=== PATIENT | female | born 2000 | race Two or more races ===

== ENCOUNTER 2021-04-22 05:47 | Emergency (ER) | payer MEDICAID ==
[~2021-04-22] VITALS: Ht 154.9 cm; Wt 72.7 kg
[~2021-04-22 05:47] MED LIST: ALBU8.5H4 IH; AMOX500T2 PO; NITR100C6 PO; ONDA4TAB12 PO; ONDA8TAB9 PO; SERT-434 PO
[2021-04-22] MEDS ORDERED: azithromycin 250mg tablet PO ONE (07:10)
[2021-04-22] MEDS ORDERED: diphenhydrAMINE 25 MG/10 ML UD oral solution PO ONE (07:10)
[2021-04-22] MEDS ORDERED: naproxen 500mg tablet PO ONE (07:10)
[2021-04-22] MEDS ORDERED: AZIT250T PO (07:12)
[2021-04-22] MEDS ORDERED: DIPH25CA83 PO (07:12)
[2021-04-22 07:22] VITALS: BP 119/84
== END 2021-04-22 07:34 | disposition home or self-care (01) ==
LOC: ER 05:48
DX: H66.92 Otitis media, unspecified, left ear (principal); H92.02 Otalgia, left ear; R09.81 Nasal congestion; J45.909 Unspecified asthma, uncomplicated; F41.9 Anxiety disorder, unspecified; Z87.440 Personal history of urinary (tract) infections; Z90.89 Acquired absence of other organs; Z98.890 Other specified postprocedural states; Z79.2 Long term (current) use of antibiotics; Z79.899 Other long term (current) drug therapy
CPT/HCPCS: 99284; Q0163

== ENCOUNTER 2021-09-29 09:39 | Emergency (ER) | payer MEDICAID ==
[~2021-09-29] VITALS: Ht 154.9 cm; Wt 75.0 kg
[~2021-09-29 09:39] MED LIST changes: +DIPH25CA83 PO
[2021-09-29 09:44] VITALS: BP 112/69
[2021-09-29] MEDS ORDERED: AMOX875T2 PO (10:55)
== END 2021-09-29 11:46 | disposition home or self-care (01) ==
LOC: ER 09:39
DX: H66.93 Otitis media, unspecified, bilateral (principal); J45.909 Unspecified asthma, uncomplicated; Z87.440 Personal history of urinary (tract) infections; Z90.49 Acquired absence of other specified parts of digestive tract; Z79.2 Long term (current) use of antibiotics; Z79.899 Other long term (current) drug therapy
CPT/HCPCS: 99283

== ENCOUNTER 2023-03-22 07:03 | Emergency (ER) | payer MEDICAID ==
[~2023-03-22] VITALS: Ht 154.9 cm; Wt 69.2 kg
[2023-03-22 08:13] LABS: BASOPHILS % (AUTO) 0.1 % (0-1); EOSINOPHILS % (AUTO) 0.2 % (0-6); HEMATOCRIT 37.8 % (35.0-45.0); HEMOGLOBIN 12.5 g/dl (12.0-16.0); LYMPHOCYTES # (AUTO) 1.2 X10'3 (1.1-4.8); LYMPHOCYTES % (AUTO) 7.5 % (21-51); MEAN CORPUSCULAR HEMOGLOBIN 27.9 PG (27.0-31.0); MEAN CORPUSCULAR HGB CONC 33.1 g/dL (33.0-36.5); MEAN CORPUSCULAR VOLUME 84.4 FL (78-98); MEAN PLATELET VOLUME 8.4 FL (7.4-10.4); NEUTROPHILS # (AUTO) 14.1 X10'3 (1.8-7.7); NEUTROPHILS % (AUTO) 86.2 % (42-75); PLATELET COUNT 205 X10'3 (140-440); RED BLOOD COUNT 4.48 X10'6 (4.20-5.60); RED CELL DISTRIBUTION WIDTH 14.5 % (11.5-14.5); WHITE BLOOD COUNT 16.4 X10'3 (4.5-11.0)
[2023-03-22 08:17] LABS: URINE HCG POSITIVE (NEG)
[2023-03-22 08:21] LABS: CLARITY,URINE SLIGHTLY CLOUDY (Clear); COLOR,URINE YELLOW (Yellow); GLUCOSE, URINE NEGATIVE (Neg); KETONES,URINE >=80 mg/dl (Neg); LEUKOCYTE ESTERASE ,URINE NEGATIVE (Neg); NITRITES, URINE NEGATIVE (Neg); OCCULT BLOOD,URINE LARGE (Neg); PH,URINE 6.5 (4.8-8.0); PROTEIN,URINE 100 mg/dl (Neg)
[2023-03-22 08:25] LABS: UA COLLECTION TYPE CLN CATCH MIDSTREAM
[2023-03-22 08:28] LABS: BACTERIA,URINE 1+ /HPF (Neg); MUCUS STRANDS NONE SEEN /LPF (Neg); RBC,URINE TNTC /HPF (0-2); SQUAMOUS EPITHELIAL CELL,UR MODERATE /LPF (FEW)
[2023-03-22 08:30] LABS: ALANINE AMINOTRANSFERASE 16 U/L (12-78); ALBUMIN 3.4 G/DL (3.4-5.0); ALBUMIN/GLOBULIN RATIO 0.9 (1.1-1.5); ALKALINE PHOSPHATASE 81 IU/L (46-116); ANION GAP 13 (8-16); ASPARTATE AMINO TRANSFERASE 19 U/L (10-37); BILIRUBIN,TOTAL 0.5 MG/DL (0.1-1.0); BLOOD UREA NITROGEN 5 MG/DL (7-18); BUN/CREATININE RATIO 9.3 (10.0-20.0); CALCIUM 9.2 MG/DL (8.5-10.1); CHLORIDE 100 MMOL/L (99-107); CREATININE 0.54 MG/DL (0.40-0.90); GLUCOSE 89 MG/DL (70-104); LIPASE < 50 U/L (73-393); POTASSIUM 3.1 MMOL/L (3.5-5.1); SODIUM 135 MMOL/L (135-145); TOTAL CARBON DIOXIDE 22.5 MMOL/L (24-32); TOTAL PROTEIN 7.1 G/DL (6.4-8.2); eGFR > 90 ML/MIN
[2023-03-22] MEDS ORDERED: ondansetron 4mg rapidly disintigrating tab PO ONE (08:55)
[2023-03-22] MEDS ORDERED: acetaminophen 325mg tablet PO ONE (08:55)
[2023-03-22 10:00] VITALS: BP 106/60
[2023-03-22] MEDS ORDERED: HYDROcodone/acetaminophen 5mg/325mg tablet PO ONE (10:45)
[2023-03-22] MEDS ORDERED: metoclopramide 10mg tablet PO ONE (10:45)
== END 2023-03-22 12:32 | disposition left against medical advice (07) ==
LOC: ER 07:46
DX: O20.0 Threatened abortion (principal); Z3A.01 Less than 8 weeks gestation of pregnancy; J45.909 Unspecified asthma, uncomplicated
CPT/HCPCS: 36415; 76801; 80053; 81001; 81025; 83690; 84145; 84702; 85025; 86885; 86900; 86901; 87088; 99284

== ENCOUNTER 2023-07-20 07:18 | Emergency (ER) | payer MEDICAID ==
[~2023-07-20] VITALS: Ht 165.1 cm; Wt 57.2 kg
[2023-07-20 07:56] LABS: URINE HCG NEGATIVE (NEG)
[2023-07-20 08:13] LABS: BASOPHILS % (AUTO) 0.5 % (0-1); EOSINOPHILS # (AUTO) 0.3 X10'3 (0-0.9); EOSINOPHILS % (AUTO) 3.9 % (0-6); HEMATOCRIT 39.3 % (35.0-45.0); HEMOGLOBIN 13.1 g/dl (12.0-16.0); LYMPHOCYTES % (AUTO) 26.5 % (21-51); MEAN CORPUSCULAR HEMOGLOBIN 27.5 PG (27.0-31.0); MEAN CORPUSCULAR HGB CONC 33.3 g/dL (33.0-36.5); MEAN CORPUSCULAR VOLUME 82.6 FL (78-98); MEAN PLATELET VOLUME 8.2 FL (7.4-10.4); MONOCYTES # (AUTO) 0.5 X10'3 (0-0.9); MONOCYTES % (AUTO) 6.6 % (2-12); NEUTROPHILS # (AUTO) 4.8 X10'3 (1.8-7.7); NEUTROPHILS % (AUTO) 62.5 % (42-75); PLATELET COUNT 221 X10'3 (140-440); RED BLOOD COUNT 4.77 X10'6 (4.20-5.60); RED CELL DISTRIBUTION WIDTH 14.6 % (11.5-14.5); WHITE BLOOD COUNT 7.6 X10'3 (4.5-11.0)
[2023-07-20 08:19] LABS: ALANINE AMINOTRANSFERASE 14 U/L (12-78); ALBUMIN 3.9 G/DL (3.4-5.0); ALBUMIN/GLOBULIN RATIO 1.1 (1.1-1.5); ALKALINE PHOSPHATASE 63 IU/L (46-116); ANION GAP 13 (8-16); ASPARTATE AMINO TRANSFERASE 13 U/L (10-37); BILIRUBIN,TOTAL 0.8 MG/DL (0.1-1.0); BLOOD UREA NITROGEN 10 MG/DL (7-18); BUN/CREATININE RATIO 14.1 (10.0-20.0); CALCIUM 9.5 MG/DL (8.5-10.1); CHLORIDE 104 MMOL/L (99-107); CREATININE 0.71 MG/DL (0.40-0.90); GLUCOSE 111 MG/DL (70-104); POTASSIUM 3.4 MMOL/L (3.5-5.1); SODIUM 138 MMOL/L (135-145); TOTAL CARBON DIOXIDE 20.8 MMOL/L (24-32); TOTAL PROTEIN 7.5 G/DL (6.4-8.2); eCRCL 94 ML/MIN; eGFR > 90 ML/MIN
[2023-07-20 08:21] LABS: SALICYLATE 2.6 MG/DL (4.0-20.0)
[2023-07-20 08:25] LABS: URINE AMPHETAMINE SCREEN NEGATIVE (Neg); URINE BARBITUATE SCREEN NEGATIVE (Neg); URINE BENZODIAZEPINES SCREEN POSITIVE (Neg); URINE CANNABINOID SCREEN POSITIVE (Neg); URINE COCAINE SCREEN POSITIVE (Neg); URINE METHADONE SCREEN NEGATIVE (Neg); URINE OPIATE SCREEN NEGATIVE (Neg); URINE PHENCYCLIDINE SCREEN NEGATIVE (Neg)
[2023-07-20 08:27] LABS: ACETAMINOPHEN < 2.0 UG/ML (10-30)
[2023-07-20 11:38] LABS: ETHANOL < 10 MG/DL (<10)
--- NOTE | 2023-07-20 11:54 | NUR ---
Faxed Packet to [facility].
[2023-07-20] MEDS ORDERED: NO HOME MEDS (11:58)
--- NOTE | 2023-07-20 12:17 | NUR ---
Patient eating lunch. No distress observed. Continue to monitor.
--- NOTE | 2023-07-20 12:50 | NUR ---
Percy ZAMORANO, evaluating patient. No distress observed. Continue to monitor.
--- NOTE | 2023-07-20 13:46 | NUR ---
[id number] placed on patient by [facility].
--- NOTE | 2023-07-20 13:46 | NUR ---
Patient sleeping on her right side. Nonlabored respirations. No distress observed. Continue with patient's plan of care.
--- NOTE | 2023-07-20 15:33 | NUR ---
Patient sleeping. No distress observed. Continue to monitor.
--- NOTE | 2023-07-20 17:19 | NUR ---
Patient eating dinner. No distress observed. Continue to monitor.
[2023-07-20 18:00] VITALS: BP 106/74; PULSE 100; RESP 16; TEMP 98; O2SAT 96
--- NOTE | 2023-07-20 19:40 | NUR ---
Patient sleeping on her right side. No distress observed. Continue to monitor.
--- NOTE | 2023-07-20 21:33 | NUR ---
Patient sleeping supine. Nonlabored respirations. RN awoke patient to get dressed as patient should be leaving soon. No distress observed.
== END 2023-07-20 21:53 | disposition still patient (30) ==
LOC: ER 07:19
DX: R45.851 Suicidal ideations (principal); Z20.822 Contact with and (suspected) exposure to COVID-19; F19.10 Other psychoactive substance abuse, uncomplicated; F32.A Depression, unspecified
CPT/HCPCS: 36415; 80053; 80305; 80320; 80329; 81025; 84443; 85025; 87811; 99285

== ENCOUNTER 2024-07-23 09:11 | Inpatient (IN) | payer MEDICAID ==
[~2024-07-23] VITALS: Ht 154.9 cm; Wt 85.0 kg
[~2024-07-23 09:11] MED LIST changes: -ALBU8.5H4 IH; -AMOX500T2 PO; -DIPH25CA83 PO; -NITR100C6 PO; +NO HOME MEDS; -ONDA4TAB12 PO; -ONDA8TAB9 PO; -SERT-434 PO
[2024-07-23 11:18] VITALS: BP 100/71; PULSE 106; RESP 18; TEMP 98.2; O2SAT 100
[2024-07-23] MEDS ORDERED: magnesium hydroxide 30ml (MOM) UD suspension PO PRN (12:00)
[2024-07-23] MEDS ORDERED: acetaminophen 325mg tablet PO PRN ×2 (12:00)
[2024-07-23] MEDS ORDERED: loperamide 2mg capsule PO PRN (12:00)
[2024-07-23] MEDS ORDERED: mag hydrox/Alum hydrox/simeth 30ml oral suspension PO PRN (12:00)
[2024-07-23] MEDS ORDERED: LAMO25TA5 PO (13:45)
[2024-07-23] MEDS ORDERED: LURA40TA4 PO (13:45)
[2024-07-23 19:00] VITALS: BP 126/84; PULSE 96; RESP 16; TEMP 98.2; O2SAT 100; O2SAT 96
[2024-07-23] MEDS: lamoTRIgine 25mg tablet PO SCH (21:11)
[2024-07-23] MEDS: lurasidone 20mg tablet PO SCH (21:12)
[2024-07-23] MEDS ORDERED: OLANZAPINE 5 MG TABLET PO SCH ×2 (21:55→22:07)
[2024-07-23] MEDS: OLANZapine 2.5MG tablet PO ONE (22:25)
[2024-07-23] MEDS: FLUoxetine 20mg capsule PO ONE (22:25)
[2024-07-23] MEDS: OLANZAPINE 5 MG TABLET PO ONE (22:48)
[2024-07-24 07:30] VITALS: BP 114/59; PULSE 77; RESP 14; TEMP 97.8; O2SAT 99
[2024-07-24] MEDS ORDERED: OLANZAPINE 5 MG TABLET PO SCH ×2 (08:00)
[2024-07-24 08:05] LABS: BASOPHILS % (AUTO) 0.3 % (0-1); EOSINOPHILS # (AUTO) 0.2 X10'3 (0-0.9); EOSINOPHILS % (AUTO) 2.2 % (0-6); HEMOGLOBIN 13.6 g/dl (12.0-16.0); LYMPHOCYTES # (AUTO) 2.7 X10'3 (1.1-4.8); LYMPHOCYTES % (AUTO) 33.1 % (21-51); MEAN CORPUSCULAR HEMOGLOBIN 29.9 PG (27.0-31.0); MEAN CORPUSCULAR HGB CONC 33.1 g/dL (33.0-36.5); MEAN CORPUSCULAR VOLUME 90.3 FL (78-98); MEAN PLATELET VOLUME 7.9 FL (7.4-10.4); MONOCYTES # (AUTO) 0.6 X10'3 (0-0.9); NEUTROPHILS # (AUTO) 4.7 X10'3 (1.8-7.7); NEUTROPHILS % (AUTO) 57.4 % (42-75); PLATELET COUNT 235 X10'3 (140-440); RED BLOOD COUNT 4.54 X10'6 (4.20-5.60); RED CELL DISTRIBUTION WIDTH 12.9 % (11.5-14.5); WHITE BLOOD COUNT 8.1 X10'3 (4.5-11.0)
[2024-07-24 08:40] LABS: ALANINE AMINOTRANSFERASE 21 U/L (12-78); ALBUMIN 3.4 G/DL (3.4-5.0); ALBUMIN/GLOBULIN RATIO 1.1 (1.1-1.5); ALKALINE PHOSPHATASE 65 IU/L (46-116); ANION GAP 10 (8-16); ASPARTATE AMINO TRANSFERASE 14 U/L (10-37); BILIRUBIN,TOTAL 0.4 MG/DL (0.1-1.0); BLOOD UREA NITROGEN 7 MG/DL (7-18); BUN/CREATININE RATIO 11.3 (10.0-20.0); CHLORIDE 105 MMOL/L (99-107); CHOLESTEROL 162 MG/DL (0-200); CREATININE 0.62 MG/DL (0.40-0.90); GLUCOSE 88 MG/DL (70-104); HDL CHOLESTEROL 54 MG/DL (35-60); LDL CHOLESTEROL 85 MG/DL (50-100); SODIUM 140 MMOL/L (135-145); THYROID STIMULATING HORMONE 0.98 ulU/ml (0.34-4.50); TOTAL PROTEIN 6.6 G/DL (6.4-8.2); TRIGLYCERIDES 94 MG/DL (20-135); eCRCL 106 ML/MIN; eGFR > 90 ML/MIN
[2024-07-24 08:44] LABS: HEMOGLOBIN A1C 4.6 % (4.5-6.2)
[2024-07-24 19:00] VITALS: BP 113/72; PULSE 90; RESP 14; TEMP 99.3; O2SAT 100
[2024-07-24] MEDS ORDERED: FLUoxetine 20mg capsule PO SCH (20:00)
[2024-07-24] MEDS: FLUoxetine 20mg capsule PO SCH (20:59)
[2024-07-24] MEDS: OLANZAPINE 5 MG TABLET PO SCH (21:00)
[2024-07-25 07:10] VITALS: RESP 18; O2SAT 96
[2024-07-25 08:00] VITALS: BP 116/74; PULSE 96; RESP 14; TEMP 97.2; O2SAT 100
[2024-07-25] MEDS: hydrOXYzine 25 MG tablet PO PRN (18:24)
[2024-07-25 19:00] VITALS: RESP 18; O2SAT 99
[2024-07-25 20:00] VITALS: BP 126/89; PULSE 89; RESP 16; TEMP 98.7; O2SAT 100
[2024-07-25] MEDS ORDERED: OLAN5TAB75 PO (21:00)
[2024-07-25] MEDS ORDERED: HYDR-3686 PO (21:00)
[2024-07-25] MEDS ORDERED: FLUO-167 PO (21:00)
== END 2024-07-25 21:33 | disposition home or self-care (01) | DRG 753 ==
LOC: ADULT MH 11:32
PROVIDERS: ADMIT Psychiatry & Neurology Psychiatry; ATTEND Psychiatry & Neurology Psychiatry
DX: F31.63 Bipolar disorder, current episode mixed, severe, without psychotic features (principal); F19.10 Other psychoactive substance abuse, uncomplicated; F41.3 Other mixed anxiety disorders; G47.00 Insomnia, unspecified; Z83.3 Family history of diabetes mellitus; T50.991A Poisoning by other drugs, medicaments and biological substances, accidental (unintentional), initial encounter; Y92.9 Unspecified place or not applicable
CPT/HCPCS: 36415; 80053; 80061; 83036; 84443; 85025; 87081; Q0177

== ENCOUNTER 2024-09-30 11:43 | Emergency (ER) | payer MEDICAID ==
[~2024-09-30] VITALS: Ht 154.9 cm; Wt 81.8 kg
[~2024-09-30 11:43] MED LIST changes: +FLUO-167 PO; +HYDR-3686 PO; +OLAN5TAB75 PO
[2024-09-30] MEDS: oxyCODONE/APAP 10/325mg tablet PO ONE (13:02)
[2024-09-30 13:08] LABS: BASOPHILS % (AUTO) 0.3 % (0-1); EOSINOPHILS # (AUTO) 0.2 X10'3 (0-0.9); EOSINOPHILS % (AUTO) 1.9 % (0-6); HEMATOCRIT 35.2 % (35.0-45.0); HEMOGLOBIN 12.1 g/dl (12.0-16.0); LYMPHOCYTES # (AUTO) 1.6 X10'3 (1.1-4.8); LYMPHOCYTES % (AUTO) 19.4 % (21-51); MEAN CORPUSCULAR HEMOGLOBIN 30.2 PG (27.0-31.0); MEAN CORPUSCULAR HGB CONC 34.3 g/dL (33.0-36.5); MEAN CORPUSCULAR VOLUME 88.1 FL (78-98); MEAN PLATELET VOLUME 7.8 FL (7.4-10.4); MONOCYTES # (AUTO) 0.6 X10'3 (0-0.9); MONOCYTES % (AUTO) 7.8 % (2-12); NEUTROPHILS # (AUTO) 5.7 X10'3 (1.8-7.7); NEUTROPHILS % (AUTO) 70.6 % (42-75); PLATELET COUNT 231 X10'3 (140-440); WHITE BLOOD COUNT 8.1 X10'3 (4.5-11.0)
[2024-09-30 13:21] LABS: ALANINE AMINOTRANSFERASE 17 U/L (12-78); ALBUMIN 3.1 G/DL (3.4-5.0); ALBUMIN/GLOBULIN RATIO 0.8 (1.1-1.5); ALKALINE PHOSPHATASE 69 IU/L (46-116); ANION GAP 9 (8-16); ASPARTATE AMINO TRANSFERASE 22 U/L (10-37); BILIRUBIN,TOTAL 0.5 MG/DL (0.1-1.0); BLOOD UREA NITROGEN 7 MG/DL (7-18); BUN/CREATININE RATIO 14.9 (10.0-20.0); CALCIUM 8.8 MG/DL (8.5-10.1); CHLORIDE 107 MMOL/L (99-107); CREATININE 0.47 MG/DL (0.40-0.90); GLUCOSE 97 MG/DL (70-104); POTASSIUM 4.1 MMOL/L (3.5-5.1); SODIUM 140 MMOL/L (135-145); TOTAL CARBON DIOXIDE 24.2 MMOL/L (24-32); TOTAL PROTEIN 6.9 G/DL (6.4-8.2); eCRCL 140 ML/MIN; eGFR > 90 ML/MIN
[2024-09-30 15:33] VITALS: BP 127/82; PULSE 99; RESP 16; TEMP 98.6; O2SAT 99
== END 2024-09-30 15:35 | disposition home or self-care (01) ==
LOC: ER 11:43 → EEVIPCON 11:43 → ER 15:35
DX: G62.9 Polyneuropathy, unspecified (principal); M79.605 Pain in left leg; J45.909 Unspecified asthma, uncomplicated; Z90.49 Acquired absence of other specified parts of digestive tract; F41.9 Anxiety disorder, unspecified; Z79.899 Other long term (current) drug therapy
CPT/HCPCS: 36415; 80053; 85025; 99284

== ENCOUNTER 2024-10-04 00:44 | Emergency (ER) | payer MEDICAID ==
[~2024-10-04] VITALS: Ht 154.9 cm; Wt 84.1 kg
[2024-10-04 01:01] VITALS: TEMP 98.5
[2024-10-04] MEDS: HYDROmorphone 1 mg/ml syringe IM ONE (02:51)
[2024-10-04] MEDS ORDERED: OXYC-658 PO (02:57)
[2024-10-04 03:22] VITALS: BP 121/84; PULSE 85; RESP 16; O2SAT 98
== END 2024-10-04 03:22 | disposition home or self-care (01) ==
LOC: ER 00:45
DX: S89.102A Unspecified physeal fracture of lower end of left tibia, initial encounter for closed fracture (principal); S89.302A Unspecified physeal fracture of lower end of left fibula, initial encounter for closed fracture; J45.909 Unspecified asthma, uncomplicated; Z79.899 Other long term (current) drug therapy; Z87.440 Personal history of urinary (tract) infections; Z90.49 Acquired absence of other specified parts of digestive tract; V89.2XXA Person injured in unspecified motor-vehicle accident, traffic, initial encounter; Y93.89 Activity, other specified; Y92.89 Other specified places as the place of occurrence of the external cause; Y99.8 Other external cause status
CPT/HCPCS: 73590; 96372; 99284; J1171

== ENCOUNTER 2025-06-22 23:03 | Emergency (ER) | payer MEDICAID ==
[~2025-06-22] VITALS: Ht 154.9 cm; Wt 85.0 kg
[2025-06-22 23:20] VITALS: BP 112/64; PULSE 90; RESP 15; TEMP 97.6; O2SAT 99
[2025-06-22 23:47] LABS: URINE HCG NEGATIVE (NEG)
[2025-06-22 23:51] LABS: LEUKOCYTE ESTERASE ,URINE NEGATIVE (Neg); NITRITES, URINE NEGATIVE (Neg); OCCULT BLOOD,URINE NEGATIVE (Neg)
[2025-06-22 23:52] LABS: UA COLLECTION TYPE CLN CATCH MIDSTREAM
[2025-06-23 00:12] LABS: MEAN PLATELET VOLUME 8.2 FL (7.4-10.4); RED CELL DISTRIBUTION WIDTH 13.5 % (11.5-14.5)
[2025-06-23 00:20] LABS: CREATININE 0.77 MG/DL (0.40-0.90); TOTAL CARBON DIOXIDE 28.8 MMOL/L (24-32); eCRCL 85 ML/MIN; eGFR > 90 ML/MIN
== END 2025-06-23 01:20 | disposition left against medical advice (07) ==
LOC: ER 23:04
DX: R10.10 Upper abdominal pain, unspecified (principal); Z53.21 Procedure and treatment not carried out due to patient leaving prior to being seen by health care provider
CPT/HCPCS: 36415; 80053; 81003; 81025; 83690; 85025

== ENCOUNTER 2025-06-24 15:52 | Emergency (ER) | payer MEDICAID ==
[~2025-06-24] VITALS: Ht 154.9 cm; Wt 93.2 kg
[2025-06-24 16:00] VITALS: BP 137/89; PULSE 88; RESP 18; TEMP 97.8; O2SAT 99
[2025-06-24 16:45] LABS: MEAN PLATELET VOLUME 8.2 FL (7.4-10.4); RED CELL DISTRIBUTION WIDTH 13.5 % (11.5-14.5)
[2025-06-24 16:59] LABS: CREATININE 0.62 MG/DL (0.40-0.90); TOTAL CARBON DIOXIDE 23.3 MMOL/L (24-32); eCRCL 106 ML/MIN; eGFR > 90 ML/MIN
--- NOTE | 2025-06-24 17:15 | RADIOLOGY REPORT ---
CHEST RADIOGRAPH Indication: CP Technique: Single frontal view of the chest was obtained Comparison: None FINDINGS: Lines and Tubes: None Lungs: No focal consolidation. Pleura: No effusion. No pneumothorax. Cardiomediastinal contours: Unremarkable Bones: No acute osseous abnormality. IMPRESSION: No acute cardiopulmonary disease.
[2025-06-24 18:57] LABS: URINE HCG NEGATIVE (NEG)
[2025-06-24 19:00] LABS: LEUKOCYTE ESTERASE ,URINE NEGATIVE (Neg); NITRITES, URINE NEGATIVE (Neg); OCCULT BLOOD,URINE NEGATIVE (Neg)
[2025-06-24 19:02] LABS: UA COLLECTION TYPE CLN CATCH MIDSTREAM
[2025-06-24 19:09] LABS: MUCUS STRANDS MODERATE /LPF (Neg); RENAL CELLS, URINE FEW /HPF; SQUAMOUS EPITHELIAL CELL,UR MANY /LPF (FEW)
== END 2025-06-24 18:20 | disposition left against medical advice (07) ==
LOC: ER 15:53
DX: R10.13 Epigastric pain (principal); R11.0 Nausea; Z53.21 Procedure and treatment not carried out due to patient leaving prior to being seen by health care provider
CPT/HCPCS: 36415; 71045; 80053; 81001; 81025; 82150; 83690; 85025

== ENCOUNTER 2025-08-09 19:10 | Emergency (ER) | payer BC, MEDICAID ==
[~2025-08-09] VITALS: Ht 154.9 cm; Wt 100.0 kg
[2025-08-09 19:22] VITALS: BP 112/65; PULSE 119; O2SAT 98
[2025-08-09 21:15] VITALS: RESP 18
[2025-08-09] MEDS: HYDROcodone/acetaminophen 5mg/325mg tablet PO ONE (21:15)
--- NOTE | 2025-08-09 21:42 | Physician Documentation ---
History of Present Illness ~ Chief Complaint: Knee Pain Stated Complaint: KNEE PAIN POST LEIGH ANN Time Seen by MD: 19:47 Primary Medical Doctor: BRANDON MARTINEZ [facility] This 24-year-old female presents with left knee pain after having a surgical procedure today, patient reports that on the drive home from the city where she had the surgery performed her pain became worse, patient reports that she was prescribed tramadol for pain and this is ineffectively managing her pain. Patient reports no other acute symptoms or concerns including no bleeding through her surgical dressing. Tetanus witin 5 years: Yes (UNSURE last dose) Medication Reconciliation Allergies: Coded Allergies: No Known Allergies (Unverified , 08/09/25) Scheduled Fluoxetine HCl (Fluoxetine HCl), 20 MG PO HS Naloxone HCl (Naloxone HCl), 1 SPRAYS BOTHNARES ONCE Olanzapine (Olanzapine), 5 MG PO HS Scheduled PRN Hydrocodone Bit/Acetaminophen 5/325 MG ([place] 5/325 MG), 1 TAB PO Q6H PRN for pain Hydroxyzine Hcl* (Atarax*), 25 MG PO Q6H PRN for anxiety Miscellaneous Medications Home Med List (No Home Medications), (Reported) Past Medical History Past Medical History: *ENT*, Asthma, UTI, Anxiety Past Surgical History: abdominal surgery, appendectomy, other Last Menstrual Period: Jul 16, 2025 Patient History: FH: bipolar disorder FH: cancer FH: diabetes mellitus Alcohol Use: None Drug Use: none Lives with: Mother Lives In: Home Occupation: child Review of Systems ROS As stated above in the HPI, otherwise all systems are reviewed and negative. Physical Exam Vital Signs: Temperature: 98.2, Heart Rate: 119, Respiratory Rate: 18, BP: 112/65, Pulse Oximetry: 98, Weight: 100.000 Oxygen Flow Rate: 0 Physical Exam VITALS: Reviewed and as above. GENERAL: Alert, nontoxic appearing, no apparent distress. 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 Progress Results/Orders Results/Orders Completed Orders - JADA ANAND MACHINE STAKER Hydrocodone/Apap 5/325mg Tab ([place] 5/32 (08/09/25 20:30) Vital Signs 08/09/25 08/09/25 08/09/25 19:22 21:15 22:10 Temp 98.2 98.2 Pulse 119 Resp 18 18 B/P (MAP) 112/65 Pulse Ox 98 O2 Flow Rate 0 Medical Decision Making Findings This 24-year-old female presented with postsurgical pain that has not well managed with prescribed tramadol, given no other reported symptoms or concerns to suggest surgical complication patient will be medicated with a dose of [place] and prescribed a short course of [place] for postsurgical pain. CURES report obtained prior to opioid prescribing. I have discussed with the patient the risks of addiction and overdose associated with use of opioids, including the increased risk of addiction to an opioid for an individual who is suffering from both mental and substance abuse disorders. I have discussed with the patient the danger of taking an opioid with a benzodiazepine, alcohol, or another central nervous system depressant. Patient is otherwise well-appearing and reporting decreased pain after or [place], patient is appropriate for outpatient follow up. Patient provided home care instructions, follow up instructions, and return to care precautions which he verbalized understanding of. Knee Diff Dx:Considerations: Include: Arthritis, Contusion, Hematoma, Laceration, Open fracture, Other (surigical site infection) Departure Time of Disposition: 21:41 Disposition: 01 HOME / SELF CARE / HOMELESS Impression: Primary Impression: Postoperative pain, acute, knee Condition: Improved Discharge Instructions: Acute Knee Pain, Adult Additional Instructions: You may use [id number] ibuprofen and or Tylenol as needed for pain as directed by the [id number]-raukzol packaging. For breakthrough pain you may use the prescribed [place], be aware that the [place] also contains the same active ingredient as Tylenol, so do not take more than the recommended amount of Tylenol as directed on the qboa-fwq-aammumt packaging. (take no more than 1000 mg of Tylenol every 6 hours or a total of 4000 mg of Tylenol every day) You have been prescribed an opioid medication, there are risks of addiction and overdose associated with the use of opioids. The risk of addiction to an opioid for increases for those suffering both from mental health and substance use disorders. The use of an opioid while taking other central nervous system depressants including but not limited to benzodiazepines or alcohol, or other opioids increases the risk of serious side effects that can include overdose or respiratory depression that can lead to serious injury or . Please follow up with your primary care provider in the next few days. Please return to the emergency department for any new or worsening concerning symptoms. Referrals: NO PRIMARY CARE PROVIDER (PCP) Prescriptions Naloxone HCl (Naloxone HCl) 4 Mg/Actuation [place] 1 SPRAYS BOTHNARES ONCE for 1 Day, #1 EA Prov: JADA ANAND 08/09/25 Hydrocodone Bit/Acetaminophen 5/325 MG ([place] 5/325 MG) 5 Mg/325 Mg Tablet 1 TAB PO Q6H PRN for pain for 3 Days, #12 TAB Prov: JADA ANAND 08/09/25 Education Educated: Patient Educated regarding: diagnosis, treatment, prognosis, need for follow up Signature Scribe Signature: No Scribe Attestation: The note accurately reflects work and decisions made by me.CELESTINE Chaudhari 08/10/25 11:37 JADA ANAND Aug 09, 2025 21:42
[2025-08-09] MEDS ORDERED: HYDR-3965 PO (21:44)
[2025-08-09] MEDS ORDERED: NALO4SPR22 BOTHNARES (21:44)
[2025-08-09 22:10] VITALS: TEMP 98.2
== END 2025-08-09 22:11 | disposition home or self-care (01) ==
LOC: ER 19:11
DX: G89.18 Other acute postprocedural pain (principal); J45.909 Unspecified asthma, uncomplicated; F41.9 Anxiety disorder, unspecified; Z90.49 Acquired absence of other specified parts of digestive tract
CPT/HCPCS: 99283

== ENCOUNTER 2025-08-14 18:44 | Emergency (ER) | payer BC ==
[~2025-08-14] VITALS: Ht 154.9 cm; Wt 93.2 kg
[~2025-08-14 18:44] MED LIST changes: +NALO4SPR22 BOTHNARES
--- NOTE | 2025-08-14 20:58 | Physician Documentation ---
History of Present Illness ~ Chief Complaint: Leg Pain Stated Complaint: L LEG PAIN Time Seen by MD: 20:54 Primary Medical Doctor: BRANDON MARTINEZ [facility] 24-year-old female patient presents to the ED with a complaint of left knee pain secondary to a knee surgery that she had a week ago. She states she received tramadol from the surgeon and has had pain that was not easily treated by the tramadol. Requesting some pain management for the coming days Day of Onset: Aug 14, 2025 Tetanus witin 5 years: Yes (UNSURE last dose) Medication Reconciliation Allergies: Coded Allergies: No Known Allergies (Unverified , 08/14/25) Scheduled Fluoxetine HCl (Fluoxetine HCl), 20 MG PO HS Naloxone HCl (Naloxone HCl), 1 SPRAYS BOTHNARES ONCE Olanzapine (Olanzapine), 5 MG PO HS Scheduled PRN Hydrocodone Bit/Acetaminophen 5/325 MG ([place] 5/325 MG), 1 TAB PO Q6H PRN for pain Hydroxyzine Hcl* (Atarax*), 25 MG PO Q6H PRN for anxiety Miscellaneous Medications Home Med List (No Home Medications), (Reported) Discontinued Medications Hydrocodone Bit/Acetaminophen 5/325 MG ([place] 5/325 MG), 1 TAB PO Q6H PRN for pain Discontinued Reason: Auto Discontinued Past Medical History Past Medical History: *ENT*, Asthma, UTI, Anxiety Past Surgical History: abdominal surgery, appendectomy, other Patient History: FH: bipolar disorder FH: cancer FH: diabetes mellitus Alcohol Use: None Drug Use: none Lives with: Mother Lives In: Home Occupation: child Review of Systems All Other Systems at this time: Reviewed and Negative ROS As stated above in the HPI, otherwise all systems are reviewed and negative. Physical Exam Vital Signs: Temperature: 97.8, Source: Oral, Heart Rate: 98, Respiratory Rate: 16, BP: 114/76, Pulse Oximetry: 99, Weight: 93.180 Physical Exam General: Alert, no apparent distress. Extremities: Normal range of motion, no deformity. Left knee surgical site no erythema or drainage Neurologic: Oriented x4. Psychiatric: Normal mood and affect. Skin: Normal color, warm and dry. No edema, no ecchymosis. Progress Results/Orders Results/Orders Completed Orders - MIK HAMILTON INSTRUCTIONAL PARAPROFESSIONAL Hydrocodone/Apap 10/325 ([place] 10/325mg (08/14/25 21:00) Medications Received in ER Medications (Trade) Dose Ordered Sig/Christel Route PRN Reason Start Time Stop Time Status Last Admin Dose Admin ([place] 10/325mg tab) 1 tab ONCE ONCE PO 08/14/25 21:00 08/14/25 21:01 DC 08/14/25 21:10 1 TAB Vital Signs 08/14/25 08/14/25 08/14/25 19:21 21:10 21:15 Temp 97.8 98.1 Pulse 98 70 Resp 16 18 16 B/P (MAP) 114/76 116/80 Pulse Ox 99 99 Medical Decision Making Findings Provide patient with a short script of pain medicine but I advised her to follow up with the your surgeon Departure Impression: Primary Impression: Postoperative pain, acute, knee Referrals: NO PRIMARY CARE PROVIDER (PCP) Prescriptions Hydrocodone Bit/Acetaminophen 5/325 MG ([place] 5/325 MG) 5 Mg/325 Mg Tablet 1 TAB PO Q6H PRN for pain, #14 TAB Prov: MIK HAMILTON NP 08/14/25 Education Educated: Patient Educated regarding: diagnosis Signature Scribe Signature: c Attestation: Scribed for Mik Hamilton Teacher Of The Emotionally Disturbed by Mik Voss NP . 08/14/25 23:27 MIK HAMILTON INSTRUCTIONAL PARAPROFESSIONAL Aug 14, 2025 20:58
[2025-08-14] MEDS ORDERED: HYDR-3965 PO (20:59)
[2025-08-14] MEDS: HYDROcodone/acetaminophen 10/325mg tab PO ONE (21:10)
[2025-08-14 21:15] VITALS: BP 116/80; PULSE 70; RESP 16; TEMP 98.1; O2SAT 99
== END 2025-08-14 21:18 | disposition home or self-care (01) ==
LOC: ER 18:45
DX: G89.18 Other acute postprocedural pain (principal); F41.9 Anxiety disorder, unspecified; J45.909 Unspecified asthma, uncomplicated; Z90.49 Acquired absence of other specified parts of digestive tract
CPT/HCPCS: 99283

== ENCOUNTER 2025-08-19 19:53 | Emergency (ER) | payer BC ==
[~2025-08-19] VITALS: Ht 154.9 cm; Wt 95.5 kg
[~2025-08-19 19:53] MED LIST changes: +HYDR-3965 PO
--- NOTE | 2025-08-19 20:53 | Physician Documentation ---
History of Present Illness ~ Chief Complaint: Post-operative complication Stated Complaint: ANKLE/FOOT PAIN Time Seen by MD: 20:49 Primary Medical Doctor: BRANDON MARTINEZ HPI Patient presents to the emergency room for evaluation of foot pain. She had a recent surgery on her foot. She was seen here twice for pain previously prescribed opioid medications. She is follow up tomorrow with her surgeon. No fevers Tetanus witin 5 years: Yes (UNSURE last dose) Medication Reconciliation Allergies: Coded Allergies: No Known Allergies (Unverified , 08/14/25) Scheduled Fluoxetine HCl (Fluoxetine HCl), 20 MG PO HS Naloxone HCl (Naloxone HCl), 1 SPRAYS BOTHNARES ONCE Olanzapine (Olanzapine), 5 MG PO HS Scheduled PRN Hydrocodone Bit/Acetaminophen 5/325 MG ([place] 5/325 MG), 1 TAB PO Q6H PRN for pain Hydroxyzine Hcl* (Atarax*), 25 MG PO Q6H PRN for anxiety Miscellaneous Medications Home Med List (No Home Medications), (Reported) Discontinued Medications Hydrocodone Bit/Acetaminophen 5/325 MG ([place] 5/325 MG), 1 TAB PO Q6H PRN for pain Discontinued Reason: Auto Discontinued Past Medical History Past Medical History: *ENT*, Asthma, UTI, Anxiety Past Surgical History: abdominal surgery, appendectomy, other Patient History: FH: bipolar disorder FH: cancer FH: diabetes mellitus Alcohol Use: None Drug Use: none Lives with: Mother Lives In: Home Occupation: child Review of Systems ROS All review of systems negative except as per HPI Physical Exam Vital Signs: Temperature: 98.6, Source: Oral, Heart Rate: 114, Respiratory Rate: 16, BP: 136/109, Pulse Oximetry: 98, Weight: 95.450 Oxygen Flow Rate: 0 Physical Exam General: Patient is awake, alert, oriented x4 in no acute distress and well appearing.~ Head: Normocephalic and atraumatic. Eyes: Conjunctival normal. EOMI. PERRL. ENT: Mucous membranes moist. Neck: Supple, trachea is midline. Chest: Clear to auscultation bilaterally without rales, rhonchi, or wheezes. There is no accessory muscle use or retractions. Cardiac: RRR without murmurs, gallops, or rubs. Abd: Soft, nondistended, nontender, with normoactive bowel sounds. No guarding, rebound, or rigidity. Extremities: Right lower extremity normal. Left lower extremity with Well healing surgical wound and patient's left medial ankle without signs of infection. Patient able to move her foot without limitations. No appreciable swelling or erythema Progress Results/Orders Results/Orders Vital Signs 08/19/25 20:04 Temp 98.6 Pulse 114 Resp 16 B/P (MAP) 136/109 Pulse Ox 98 O2 Flow Rate 0 Medical Decision Making Additional info obtained from: other Findings Patient presents to the emergency room with a reassuring physical exam concern for pain postoperatively. Differentials include infection versus nerve pain versus postoperative pain. Patient's physical exam is reassuring he had not feel patient requires emergent labs or imaging. She has excellent follow up. We will treat her pain acutely. General Diff Dx:Considerations: Include: Abrasion, Contusion, Fracture, Hematoma, Laceration, Malunion, Neurovascular injury, Open fracture, Sprain, Ulcer, Other Knee Diff Dx:Considerations: Include: Abrasion, Arthritis, Contusion, DJD, Fracture-femur, Fracture-fibula, Fracture-patella, Fracture-tibia, Gout, Hematoma, Laceration, Meniscus injury, Neurovascular injury, Open fracture, Rheumatoid arthritis, Septic, Sprain, Sprain-MCL, Sprain-LCL, Sprain-ACL, Sprain-PCL, Other Ankle Diff Dx:Considerations: Include: Abrasion, Arthritis, Contusion, DJD, Fracture-metatarsal, Fracture-fibula, Fracture-tarsal, Fracture-tibia, Gout, Hematoma, Laceration, Malunion, Neurovascular injury, Nonunion, Open fracture, Osteomyelitis, Rheumatoid arthritis, Sprain, Septic, Ulcer, Other Foot Diff Dx:Considerations: Include: Abrasion, Arthritis, Cellulitis, Contusion, Dislocation, DJD, Fracture-metatarsal, Fracture-phalynx, Fracture- tarsal, Gout, Hematoma, Ingrown toenail, Laceration, Malunion, Neurovascular injury, Open fracture, Paronychia, Puncture, Rheumatoid, Sprain, Septic, Subungual hematoma, Ulcer, Other Toe Diff Dx:Considerations: Include: Abrasion, Cellulitis, Contusion, Dislocation, Felon, Fracture, Hematoma, Laceration, Neurovascular injury, Open fracture, Paronychia, Subungual hematoma, Other Departure Disposition: 01 HOME / SELF CARE / HOMELESS Impression: Primary Impression: Postoperative pain Condition: Stable Discharge Instructions: NIHARIKA Therapy for Routine Care of Injuries Referrals: NO PRIMARY CARE PROVIDER (PCP) Signature Scribe Signature: No scribe Attestation: The note accurately reflects work and decisions made by me.Yossi Meléndez MD 08/19/25 20:59 YOSSI MELÉNDEZ MD Aug 19, 2025 20:53
[2025-08-19] MEDS ORDERED: ketorolac trometh 15mg/ml vial 15 MG/ML ML IM ONE (21:00)
[2025-08-19] MEDS: ketorolac trometh 30MG/ML vial 30 MG/ML VIAL IM ONE (21:11)
[2025-08-19] MEDS: HYDROcodone/acetaminophen 5mg/325mg tablet PO ONE (21:11)
[2025-08-19 21:28] VITALS: BP 134/99; PULSE 109; RESP 18; TEMP 98.6; O2SAT 99
[2025-08-20] MEDS ORDERED: IBUP-1986 PO (21:29)
[2025-08-20] MEDS ORDERED: ACET-1025 PO (21:29)
== END 2025-08-19 21:29 | disposition home or self-care (01) ==
LOC: ER 19:53
DX: G89.18 Other acute postprocedural pain (principal); J45.909 Unspecified asthma, uncomplicated; F41.9 Anxiety disorder, unspecified; Z90.49 Acquired absence of other specified parts of digestive tract
CPT/HCPCS: 96372; 99283; J1885

== ENCOUNTER 2025-08-20 18:33 | Emergency (ER) | payer BC ==
[~2025-08-20] VITALS: Ht 154.9 cm; Wt 95.5 kg
--- NOTE | 2025-08-20 19:35 | Physician Documentation ---
History of Present Illness ~ Chief Complaint: Wound dehiscence Stated Complaint: WOUND CHECK Time Seen by MD: 19:13 Primary Medical Doctor: BRANDON ALANIS Patient is seen today with complaints of having had camille removed from her surgical incisions today from a hardware removal from her left lower extremity that was performed 10 days ago. Patient is about 10 days postop. Patient states one of her incisions popped open about 3-1/2 hours ago. She has no other concern or complaint at this time. Tetanus Within 5 Years: Yes (UNSURE last dose) Medication Reconciliation Allergies: Coded Allergies: No Known Allergies (Unverified , 08/14/25) Scheduled Fluoxetine HCl (Fluoxetine HCl), 20 MG PO HS Naloxone HCl (Naloxone HCl), 1 SPRAYS BOTHNARES ONCE Olanzapine (Olanzapine), 5 MG PO HS Scheduled PRN Hydrocodone Bit/Acetaminophen 5/325 MG ([place] 5/325 MG), 1 TAB PO Q6H PRN for pain Hydroxyzine Hcl* (Atarax*), 25 MG PO Q6H PRN for anxiety Miscellaneous Medications Home Med List (No Home Medications), (Reported) Discontinued Medications Hydrocodone Bit/Acetaminophen 5/325 MG ([place] 5/325 MG), 1 TAB PO Q6H PRN for pain Discontinued Reason: Auto Discontinued Past Medical History Past Medical History: *ENT*, Asthma, UTI, Anxiety Past Surgical History: abdominal surgery, appendectomy, other Patient History: FH: bipolar disorder FH: cancer FH: diabetes mellitus Alcohol Use: None Drug Use: none Lives with: Mother Lives In: Home Occupation: child Review of Systems Constitutional: Denies: chills, fever, weakness Eyes: Denies: pain, blurred vision ENT: Denies: ear pain, nose pain, throat pain, mouth pain Respiratory: Denies: cough, shortness of breath Cardiovascular: Denies: chest pain, palpitations Gastrointestinal: Denies: abdominal pain, nausea, vomiting Genitourinary: Denies: burning, dysuria Female Genitalia: Denies: vaginal discharge, pelvic pain Neurological: Denies: headache, dizziness Musculoskeletal: Denies: pain, swelling Integumentary: Denies: rash, lesions Allergic/Immunologic: Denies: hives, itching Hematologic/Lymphatic: Denies: no symptoms reported Psychiatric: Denies: depression, anxiety Physical Exam Vital Signs: Temperature: 98.2, Heart Rate: 93, Respiratory Rate: 16, BP: 133/71, Pulse Oximetry: 99, Weight: 95.450 Oxygen Flow Rate: 0 Physical Exam General: Awake and Alert, no acute distress. HEENT: Conjunctiva pink, Sclera clear, Mucus Membranes moist. Neck: Supple without masses and tenderness. Resp: Unlabored. Lungs clear to auscultation bilaterally. Extremities: No cyanosis,clubbing or edema. Skin: Patient on exam has a small 1.5 cm postop surgical incision that has popped open. I do not appreciate any surrounding erythema or induration or purulent drainage or sign of infection. There is some serosanguineous drainage. Progress Results/Orders Results/Orders Orders - VICTOR M RIZO PAC General Nursing Order (08/20/25 19:37) Tib/Fib (08/20/25 20:53) Completed Orders - VICTOR M RIZO PAC Tib/Fib (08/20/25 20:53) Ibuprofen Tablet (Motrin Tablet) (08/20/25 20:40) Acetaminophen 325mg Tablet (Tylenol Tabl (08/20/25 20:37) Medications Received in ER Medications (Trade) Dose Ordered Sig/Christel Route PRN Reason Start Time Stop Time Status Last Admin Dose Admin (Motrin tablet) 800 mg ONCE ONCE PO 08/20/25 20:40 08/20/25 20:42 DC 08/20/25 21:08 800 MG (Tylenol tablet) 975 mg ONCE STAT PO 08/20/25 20:37 08/20/25 20:42 DC 08/20/25 21:07 975 MG Vital Signs 08/20/25 18:42 Temp 98.2 Pulse 93 Resp 16 B/P (MAP) 133/71 Pulse Ox 99 O2 Flow Rate 0 EKG/XRAY/CT/US/VASC/MRI Bone/Soft Tissue X-Ray (Ext.) : Additional Comment X-ray of left leg interpreted by myself today shows healing fracture of distal fibular diaphysis and distal tibial diaphysis with intramedullary vamsi and screw tracts present in the tibia and fibula. There are no acute fractures or dislocations. DIAGNOSTIC RADIOLOGY Patient: OSCAR MORALES Medical Record: [id number] [facility] : 2000, Age: 24 Sex: Female Location: ER Patient Status: REG ER Service Date/Time: 08/20/252052 Ordering Physician: VICTOR M RIZO PAC Exam: TIB/FIB 2 VWS CLINICAL INDICATION: leg pain S/P harware removal LEFT TECHNIQUE: 2 radiographic views of the left tibia and fibula were obtained. Comparison: DI TIB/FIB 2 VWS on DOS: 10/04/24 FINDINGS/IMPRESSION: There is healing fracture of the right distal tibial diaphysis. Intramedullary vamsi and screw tracts are noted within the tibia and of the distal fibula. There is additional healing fracture of the distal fibular diaphysis. No acute fractures or dislocations. Electronically Signed by:MARIBELL DEAN DO Date & Time: 08/20/252103 Dictated by: MARIBELL DEAN DO Dictation date and time: 08/20/252103 Primary Care Provider: NO PRIMARY CARE PROVIDER cc: VICTOR M RIZO PAC ~ Medical Decision Making Additional information obtaine: N/A Findings Patient is seen today with complaints of having had camille removed from her surgical incisions today from a hardware removal from her left lower extremity that was performed 10 days ago. Patient is about 10 days postop. Patient states one of her incisions popped open about 3-1/2 hours ago. She has no other concern or complaint at this time. Patient did have x-ray of left leg which did show healing fractures of the tibia and fibula with no acute fractures noted. Wound was bandaged and will heal by secondary intention. I recommended patient follow up and contact her surgeon as soon as possible for eval and treatment. Patient was given dose of Tylenol 975 mg and ibuprofen 800 mg by mouth. Prescriptions of the same sent to patient's pharmacy to be taken as prescribed. Patient will return to ED with any worsening, concerning or changing symptoms. She will perform daily dressing changes until wound is healed. Patient will keep wound clean and dry. Differential Dx:Considerations: Include: Avulsion, Laceration Departure Disposition: 01 HOME / SELF CARE / HOMELESS Impression: Primary Impression: Wound dehiscence Additional Impressions: Pain in left leg Post-op pain Condition: Stable Discharge Instructions: Wound Dehiscence, [id number] Additional Instructions: Wound was bandaged and will heal by secondary intention. I recommended patient follow up and contact her surgeon as soon as possible for eval and treatment. Referrals: NO PRIMARY CARE PROVIDER (PCP) Prescriptions Acetaminophen (Tylenol Extra Strength) 500 Mg Tablet 2 TAB PO Q6H PRN PRN for pain or fever for 20 Days, #120 TAB Prov: VICTOR M RIZO 08/20/25 Ibuprofen (Ibuprofen) 800 Mg Tablet 1 TAB PO Q8H for pain for 20 Days, #60 TAB 0 Refills Prov: VICTOR M RIZO 08/20/25 Signature Scribe Signature: No scribe Attestation: No scribe VICTOR M RIZO Aug 20, 2025 19:35
--- NOTE | 2025-08-20 21:06 | RADIOLOGY REPORT ---
CLINICAL INDICATION: leg pain S/P harware removal LEFT TECHNIQUE: 2 radiographic views of the left tibia and fibula were obtained. Comparison: DI TIB/FIB 2 VWS on DOS: 10/04/24 FINDINGS/IMPRESSION: There is healing fracture of the right distal tibial diaphysis. Intramedullary vamsi and screw tracts are noted within the tibia and of the distal fibula. There is additional healing fracture of the distal fibular diaphysis. No acute fractures or dislocations.
[2025-08-20] MEDS: ibuprofen tablet 400 MG TABLET PO ONE (21:08)
[2025-08-20] MEDS ORDERED: ACET-1025 PO (21:29)
[2025-08-20] MEDS ORDERED: IBUP-1986 PO (21:29)
[2025-08-20 21:34] VITALS: BP 130/70; PULSE 90; RESP 18; TEMP 98.6; O2SAT 99
== END 2025-08-20 21:35 | disposition home or self-care (01) ==
LOC: ER 18:33
DX: T81.30XA Disruption of wound, unspecified, initial encounter (principal); G89.18 Other acute postprocedural pain; M79.605 Pain in left leg; J45.909 Unspecified asthma, uncomplicated; Z90.49 Acquired absence of other specified parts of digestive tract; Z87.440 Personal history of urinary (tract) infections
CPT/HCPCS: 73590; 99283; A6212; A6402; A6449

== ENCOUNTER 2025-08-30 21:32 | Emergency (ER) | payer BC ==
[~2025-08-30] VITALS: Ht 154.9 cm; Wt 95.5 kg
[~2025-08-30 21:32] MED LIST changes: +ACET-1025 PO; +IBUP-1986 PO
[2025-08-30 21:40] VITALS: BP 121/70; PULSE 99; O2SAT 96
--- NOTE | 2025-08-30 23:14 | Physician Documentation ---
History of Present Illness ~ Chief Complaint: Knee Pain Stated Complaint: LEG PAIN Time Seen by MD: 21:45 Primary Medical Doctor: BRANDON ALANIS 24-year-old female who presents to the emergency department for evaluation of left lower leg pain. Patient is status post hardware removal of the left tib- fib. Initial hardware was placed one year ago. Since having hardware removed with for weeks ago and beginning gabapentin patient continues to have discomfort to the calf without associated palpitations, shortness of breath near-syncope. She does report that there is mild swelling. There is no warmth or erythema. Pain is worse with dorsiflexion. He is not on control pills. Tetanus witin 5 years: Yes (UNSURE last dose) Medication Reconciliation Allergies: Coded Allergies: No Known Allergies (Unverified , 08/14/25) Scheduled Fluoxetine HCl (Fluoxetine HCl), 20 MG PO HS Ibuprofen (Ibuprofen), 1 TAB PO Q8H Naloxone HCl (Naloxone HCl), 1 SPRAYS BOTHNARES ONCE Olanzapine (Olanzapine), 5 MG PO HS Scheduled PRN Acetaminophen (Tylenol Extra Strength), 2 TAB PO Q6H PRN PRN for pain or fever Hydrocodone Bit/Acetaminophen 5/325 MG ([place] 5/325 MG), 1 TAB PO Q6H PRN for pain Hydroxyzine Hcl* (Atarax*), 25 MG PO Q6H PRN for anxiety Miscellaneous Medications Home Med List (No Home Medications), (Reported) Past Medical History Past Medical History: *ENT*, Asthma, UTI, Anxiety Past Surgical History: abdominal surgery, appendectomy, other Patient History: FH: bipolar disorder FH: cancer FH: diabetes mellitus Alcohol Use: None Drug Use: none Lives with: Mother Lives In: Home Occupation: child Review of Systems All Other Systems at this time: Reviewed and Negative Musculoskeletal: Reports: muscle pain Musculoskeletal Well healing scars Physical Exam Vital Signs: RN Vital Signs have been reviewed: Yes, Temperature: 98.0, Source: Oral, Heart Rate: 99, Respiratory Rate: 18, BP: 121/70, Pulse Oximetry: 96, Weight: 95.450 Oxygen Flow Rate: 0 General Appearance: alert, WD/WN, mild distress Head: normal inspection EENT: PERRL/EOMI Respiratory: no respiratory distress Chest: no accessory muscle use Cardiovascular: normal peripheral pulses Legs: soft tissue tenderness, swelling Legs Healing scar to the patella and well healing scar to the medial tibia Knees: other (See HPI) Distal Function: no motor deficit, no sensory deficit, normal capillary refill Skin: normal color Lymphatic: normal inspection Neurologic: oriented x4 Psychiatric: normal mood/affect Progress Results/Orders Results/Orders Orders - JG SOUZA PAC Vl Venous (08/30/25 22:39) Vital Signs 08/30/25 21:40 Temp 98.0 Pulse 99 Resp 18 B/P (MAP) 121/70 Pulse Ox 96 O2 Flow Rate 0 Medical Decision Making Additional information obtaine: old records Findings Examination history warrants ultrasound imaging to evaluate for DVT. No clinical suspicion for cellulitis or abscess. If ultrasound imaging is negative patient to follow up with the primary care physician/orthopedist for alternative medication regimen. Patient is safe for discharge. General Diff Dx:Considerations: Include: Malunion, Neurovascular injury, Other (DVT) Knee Diff Dx:Considerations: Include: Abrasion, Arthritis, Contusion, DJD, Fracture-femur, Fracture-fibula, Fracture-patella, Fracture-tibia, Gout, Hematoma, Laceration, Meniscus injury, Neurovascular injury, Open fracture, Rheumatoid arthritis, Septic, Sprain, Sprain-MCL, Sprain-LCL, Sprain-ACL, Sprain-PCL, Other Ankle Diff Dx:Considerations: Include: Abrasion, Arthritis, Contusion, DJD, Fracture-metatarsal, Fracture-fibula, Fracture-tarsal, Fracture-tibia, Gout, Hematoma, Laceration, Malunion, Neurovascular injury, Nonunion, Open fracture, Osteomyelitis, Rheumatoid arthritis, Sprain, Septic, Ulcer, Other Foot Diff Dx:Considerations: Include: Abrasion, Arthritis, Cellulitis, Contusion, Dislocation, DJD, Fracture-metatarsal, Fracture-phalynx, Fracture- tarsal, Gout, Hematoma, Ingrown toenail, Laceration, Malunion, Neurovascular injury, Open fracture, Paronychia, Puncture, Rheumatoid, Sprain, Septic, Subungual hematoma, Ulcer, Other Toe Diff Dx:Considerations: Include: Abrasion, Cellulitis, Contusion, Dislocation, Felon, Fracture, Hematoma, Laceration, Neurovascular injury, Open fracture, Paronychia, Subungual hematoma, Other Departure Disposition: 01 HOME / SELF CARE / HOMELESS Impression: Primary Impression: Postoperative left lower extremity pain Additional Impression: Status post hardware removal Condition: Stable Additional Instructions: Your ultrasound imaging tonight is unremarkable for deep vein thrombosis or infectious process. Please follow up with the orthopedist for repeated examination and consideration of alternative medication therapy. Thank you for visiting emergency department [facility] Referrals: NO PRIMARY CARE PROVIDER (PCP) Education Educated: Patient Educated regarding: diagnosis, treatment, prognosis, need for follow up Signature Scribe Signature: . Attestation: . JG SOUZA [facility] Aug 30, 2025 23:14
--- NOTE | 2025-08-31 00:05 | VASCULAR REPORT ---
Left lower extremity venous duplex Clinical History: Left lower extremity pain Comparison: None Technique: Duplex Doppler evaluation of the deep venous system of the left lower extremity from the common femoral vein to the popliteal vein including color Doppler and spectral/pulsed waveform analysis was performed. Findings: The common femoral vein demonstrates appropriate compressibility and waveform variability. There is compressibility/patency of the great saphenous vein at the proximal thigh. The femoral vein demonstrates appropriate compressibility and waveform variability. The deep femoral vein demonstrates appropriate compressibility and waveform variability. The popliteal vein demonstrates appropriate compressibility and waveform variability. There is normal compressibility at the tibioperoneal trunk. Impression: 1. No left femoropopliteal venous thrombosis. 2. Contralateral common femoral vein is patent.
[2025-08-31 00:08] VITALS: TEMP 98
[2025-08-31 00:15] VITALS: RESP 18
[2025-08-31] MEDS: ketorolac trometh 15mg/ml vial 15 MG/ML ML IM ONE (00:15)
== END 2025-08-31 00:23 | disposition home or self-care (01) ==
LOC: ER 21:33
DX: G89.18 Other acute postprocedural pain (principal); M79.662 Pain in left lower leg; J45.909 Unspecified asthma, uncomplicated; F41.9 Anxiety disorder, unspecified; Z90.49 Acquired absence of other specified parts of digestive tract; Z87.440 Personal history of urinary (tract) infections; Z79.899 Other long term (current) drug therapy
CPT/HCPCS: 93971; 96372; 99285; J1885

== ENCOUNTER 2025-09-07 23:03 | Emergency (ER) | payer BC ==
[~2025-09-07] VITALS: Ht 154.9 cm; Wt 95.5 kg
[2025-09-07 23:09] VITALS: BP 122/74; PULSE 98; RESP 16; O2SAT 99
--- NOTE | 2025-09-08 01:20 | Physician Documentation ---
History of Present Illness ~ Chief Complaint: Foot pain Stated Complaint: ANKLE PAIN Time Seen by MD: 01:19 Primary Medical Doctor: BRANDON ALANIS 24-year-old female presenting with left foot pain She tells me that she had an accident and fractured her left lower leg, requiring hardware placement. About a month ago she had the metal vamsi removed from her tibia. Since that time she has been having pain in her left leg and foot. She states it is a burning pain and sometimes numb. Over the past couple of days she has had worsening burning sensation to her left foot. She was started on gabapentin a couple of weeks ago and has been taking this regularly. She has also been trying ibuprofen. No fevers or chills. No redness or swelling to the leg. No other acute concerns. Tetanus witin 5 years: Yes (UNSURE last dose) Medication Reconciliation Allergies: Coded Allergies: No Known Allergies (Unverified , 09/07/25) Scheduled Fluoxetine HCl (Fluoxetine HCl), 20 MG PO HS Ibuprofen (Ibuprofen), 1 TAB PO Q8H Naloxone HCl (Naloxone HCl), 1 SPRAYS BOTHNARES ONCE Olanzapine (Olanzapine), 5 MG PO HS Scheduled PRN Acetaminophen (Tylenol Extra Strength), 2 TAB PO Q6H PRN PRN for pain or fever Hydrocodone Bit/Acetaminophen 5/325 MG ([place] 5/325 MG), 1 TAB PO Q6H PRN for pain Hydroxyzine Hcl* (Atarax*), 25 MG PO Q6H PRN for anxiety Miscellaneous Medications Home Med List (No Home Medications), (Reported) Past Medical History Past Medical History: *ENT*, Asthma, UTI, Anxiety Past Surgical History: abdominal surgery, appendectomy, other Patient History: FH: bipolar disorder FH: cancer FH: diabetes mellitus Alcohol Use: None Drug Use: none Lives with: Mother Lives In: Home Occupation: child Review of Systems Constitutional: Denies: fever Neurological: Reports: tingling Musculoskeletal: Reports: pain Physical Exam Vital Signs: Temperature: 97.8, Source: Temporal, Heart Rate: 98, Respiratory Rate: 16, BP: 122/74, Pulse Oximetry: 99, Weight: 95.500 Physical Exam General: This is a healthy-appearing young female, partner at bedside HEENT: Atraumatic, oropharynx is moist Heart: normal-appearing peripheral perfusion Lungs: normal work of breathing, normal oxygen saturation on room air Extremities: Warm and well-perfused Left lower extremity: The patient has several postsurgical wounds on her left lower leg, which appeared to be well healing, no significant surrounding erythema, no fluctuance or drainage. No swelling or overlying skin changes to the left foot. Normal-appearing perfusion including normal capillary refill. Grossly normal sensation to light touch in the left foot in the leg although she does report some very mild generalized tingling Neuro: Alert and oriented Psychiatric: Calm and cooperative with exam Progress Results/Orders Results/Orders Vital Signs 09/07/25 09/08/25 23:09 01:41 Temp 97.8 97.8 Pulse 98 Resp 16 B/P (MAP) 122/74 Pulse Ox 99 Medical Decision Making Additional information obtaine: N/A Findings na General Diff Dx:Considerations: Include: Neurovascular injury; Unlikely: Abrasion Knee Diff Dx:Considerations: Unlikely: Abrasion Ankle Diff Dx:Considerations: Unlikely: Abrasion Foot Diff Dx:Considerations: Unlikely: Abrasion Toe Diff Dx:Considerations: Unlikely: Abrasion Additional Comment The patient presents with left foot pain, in the setting of recent leg surgery. Her history and exam seem most consistent with neuropathic pain or neuropathy. No evidence of infection. No evidence of vascular compromise. No evidence of weakness to suggest a dangerous nerve injury or compression. She was reassured. She is already on gabapentin. She was given home care instructions and outpatient follow up. Departure Time of Disposition: 01:35 Disposition: 01 HOME / SELF CARE / HOMELESS Impression: Primary Impression: Neuropathy Condition: Stable Discharge Instructions: Peripheral Neuropathy Referrals: NO PRIMARY CARE PROVIDER (PCP) Education Educated: Patient, Family Educated regarding: diagnosis, treatment, need for follow up Signature Scribe Signature: na Attestation: JG Brock MD Sep 08, 2025 01:20
[2025-09-08 01:41] VITALS: TEMP 97.8
== END 2025-09-08 01:44 | disposition home or self-care (01) ==
LOC: ER 23:03
DX: G62.9 Polyneuropathy, unspecified (principal); J45.909 Unspecified asthma, uncomplicated; F41.9 Anxiety disorder, unspecified; Z90.49 Acquired absence of other specified parts of digestive tract
CPT/HCPCS: 99282